=== PATIENT | male | born 2000 | race Hispanic/Latino ===

== ENCOUNTER 2021-07-30 18:29 | Emergency (ER) | payer SELFPAY ==
[~2021-07-30] VITALS: Ht 167.6 cm; Wt 68.0 kg
[2021-07-30] MEDS ORDERED: TORADOL PO (19:35)
[2021-07-30] MEDS ORDERED: HYDROCO/APAP1 TA9 PO (19:53)
[2021-07-30] MEDS ORDERED: CLEOCIN300 MG PO (19:53)
[2021-07-30 20:30] VITALS: BP 123/79
== END 2021-07-30 20:30 | disposition home or self-care (01) | DRG 159 ==
LOC: ED 18:29
DX: K04.7 Periapical abscess without sinus (principal)